=== PATIENT | male | born 1980 | race Caucasian/White ===

== ENCOUNTER 2024-02-09 20:46 | Emergency (ER) | payer BC, SELFPAY ==
[2024-02-09] VITALS (12 sets, daily range): BP systolic 152–164; BP diastolic 98–100; PULSE 70–83; RESP 20; TEMP 36.8; O2SAT 93–99; BMI 40.0
--- NOTE | 2024-02-09 20:53 | ED_ITS ---
HPI - General Adult General Time Seen by Provider: 20:53 Date Seen: 02/09/24 Chief complaint: Chest Pain Stated complaint: Chest pains Time Seen by Provider: 02/09/24 20:53 Source: patient Mode of arrival: ambulatory Limitations: no limitations History of Present Illness HPI narrative: Kobe is a very pleasant 43-year-old gentleman with history of hypertension, hyperlipidemia untreated who comes to the emergency room for evaluation regarding chest pain. Kobe notes that it had been a busy weekend and they had been camping with family down in [place]. Did not notice anything over the weekend. Tonight he was watching TV and had a 20 minute episode of chest discomfort substernal that he describes as a squeezing like a fist in his chest. He did have some lightheadedness when he got up but he is unsure if that may have been anxiety. He denies shortness of breath recent cough cold congestion nausea vomiting. He denies any unusual lower extremity edema or calf tenderness or history of DVT. Currently he states he has a discomfort of 1/10. It does not change if he moves position. He does have intact gallbladder and he has not had any GERD or history of heartburn. Deep breathing does not change his discomfort. Patient denies a history of tobacco use, alcohol use. No history of heartburn, GERD. Related Data Home Medications ?Medication ?Instructions ?Recorded ?Confirmed No Known Home Medications 02/09/24 02/09/24 Allergies Allergy/AdvReac Type Severity Reaction Status Date / Time No Known Drug Allergies Allergy Verified 02/09/24 20:53 Review of Systems Status of ROS: Reports: 10 or more systems reviewed and unremarkable except as noted in History and below Const: Denies: fever, chills or fatigue ENMT: Denies: throat pain, neck pain, throat swelling or nasal congestion Cardio: Reports: chest pain and lightheadedness; Denies: palpitations, edema, swelling of feet/ankles or shortness of breath with exertion Resp: Denies: shortness of breath, cough or wheezing GI: Denies: abdominal pain, nausea, vomiting or diarrhea : Denies: painful urination or urinary frequency Musculo: Denies: back pain, neck pain or extremity pain Neuro: Denies: headache, numbness in extremities or weakness in extremities Endo: Denies: fatigue Allergy/Immuno: Denies: throat swelling or wheezing PFSH PFSH Medical History No significant past medical history Surgical History No significant past surgical history Social History Smoking Status: Never smoker Second hand tobacco smoke exposure: No How often do you have a drink containing alcohol: never AUDIT-C Alcohol total score: 0 Non-prescribed substance use: denies use Exam Narrative: Exam Narrative: Arc is alert and oriented. Very pleasant well-spoken gentleman. No acute distress. Face symmetrical. Speech is normal as is mentation. Heart with regular rate and rhythm. I do not auscultate murmur or rub. I do have patient lean forward and again do not of appreciate a murmur or rub. Lungs are clear bilaterally. No CVA tenderness with percussion. Abdomen soft and nontender. Expect An in the right upper quadrant. Lower extremities without edema or calf tenderness. Const: Vital Signs, click to edit/add: Vital Signs - 24 hr 02/09/24 20:51 02/09/24 20:59 02/09/24 21:00 Temperature 98.2 F Pulse Rate 83 81 Pulse Rate [Right Pulse Oximeter] 83 Respiratory Rate 20 Blood Pressure 152/98 H Blood Pressure [Ri ght Upper Arm] 164/100 H Pulse Oximetry 99 97 94 Oxygen Delivery Me thod Room Air 02/09/24 21:15 02/09/24 21:30 02/09/24 21:45 Temperature Pulse Rate 79 76 75 Pulse Rate [Right Pulse Oximeter] Respiratory Rate Blood Pressure Blood Pressure [Ri ght Upper Arm] Pulse Oximetry 94 96 94 Oxygen Delivery Me thod 02/09/24 22:00 02/09/24 22:15 02/09/24 22:30 Temperature Pulse Rate 72 74 73 Pulse Rate [Right Pulse Oximeter] Respiratory Rate Blood Pressure Blood Pressure [Ri ght Upper Arm] Pulse Oximetry 93 93 94 Oxygen Delivery Me thod 02/09/24 22:45 02/09/24 23:00 02/09/24 23:15 Temperature Pulse Rate 70 71 75 Pulse Rate [Right Pulse Oximeter] Respiratory Rate Blood Pressure Blood Pressure [Ri ght Upper Arm] Pulse Oximetry 94 94 93 Oxygen Delivery Me thod Course Course ED Course: Differential diagnosis includes but is not limited to acute coronary syndrome, angina, esophageal spasm, biliary colic, esophagitis, GERD, anxiety, musculoskeletal discomfort. At this time will place IV and draw labs to include CBC, comprehensive panel, CRP, troponin. Will also order chest x-ray as well as EKG. Reevaluation(s) Reevaluation #1: Patient is noted to have had resolution of his discomfort. Two cardiac enzymes negative an EKG is reassuring. Vital Signs Vital signs: Initial Vital Signs Temperature 98.2 F 02/09/24 20:51 Temperature Source Temporal Artery Scan 02/09/24 20:51 Pulse Rate 83 02/09/24 20:51 Respiratory Rate 20 02/09/24 20:51 Blood Pressure 164/100 H 02/09/24 20:51 Blood Pressure Mean 121 H 02/09/24 20:51 Blood Pressure Position Sitting 02/09/24 20:51 Pulse Oximetry 99 02/09/24 20:51 Oxygen Delivery Method Room Air 02/09/24 20:51 Vital Signs Temperature 98.2 F 02/09/24 20:51 Pulse Rate 83 02/09/24 20:51 Respiratory Rate 20 02/09/24 20:51 Blood Pressure 164/100 H 02/09/24 20:51 Pulse Oximetry 99 02/09/24 20:51 Oxygen Delivery Method Room Air 02/09/24 20:51 Temperature 98.2 F 02/09/24 20:51 Pulse Rate 75 02/09/24 23:15 Respiratory Rate 20 02/09/24 20:51 Blood Pressure 152/98 H 02/09/24 20:59 Pulse Oximetry 93 02/09/24 23:15 Oxygen Delivery Method Room Air 02/09/24 20:51 Medical Decision Making [facility] Narrative Medical decision making narrative: 1. Atypical chest pain-patient has had reassuring EKG, 2 sets of negative cardiac enzymes and resolution of his discomfort. In addition compliance monitor did not show any evidence of arrhythmia. At this time given the elevated blood pressure and untreated hyperlipidemia, elevated BMI, he does have risk factors for cardiac disease. I would recommend follow-up with primary clinic/primary doctor for ordering of a stress test as well as attention to his elevated blood pressures. In the interim will be starting him on baby aspirin daily. First aspirin given this evening. Until stress test recommend limited activity and avoiding any activity that would elevate blood pressure. This would include sexual activity. Return to the emergency room for worsening symptoms. Kobe did think that perhaps he was having some heartburn because [facility] He can try Tums at home but if his pain would return and persist I would want him to return to the emergency room or call 911. 2. Disposition-home at this time. Patient is agree that they feel safe going home. Return for worsening symptoms. Lab Data Lab results reviewed: Yes I reviewed the patient's lab results Labs: Lab Results 02/09/24 02/09/24 02/09/24 Range/Units 21:30 21:35 23:35 WBC 8.84 (4.50-11.00) K/uL RBC 4.82 (4.30-5.90) m/uL Hgb 14.3 (13.5-17.5) gm/dL Hct 43.4 (37.0-53.0) % MCV 90 (80-100) fL MCH 30 (26-34) pg MCHC 33 (32-36) gm/dL RDW Coeff of Devi 12.4 (11.5-15.5) % Plt Count 296 (140-440) K/uL Neut % (Auto) 55.3 (42.0-72.0) % Lymph % (Auto) 34.2 (20-44) % [place] % (Auto) 7.5 (0.0-11.0) % Eos % (Auto) 2.4 (0.0-7.0) % Baso % (Auto) 0.5 (0.0-3.0) % Neut # (Auto) 4.90 (1.7-7.0) K/uL Lymph # (Auto) 3.02 H (0.90-2.90) K/uL [place] # (Auto) 0.70 (0.00-0.90) K/UL Eos # (Auto) 0.21 (0.00-0.50) K/uL Baso # (Auto) 0.04 (0.00-0.30) K/uL Abs Immat Gran (auto) 0.01 (0.00-0.30) K/uL Imm/Tot Granulo (auto) 0.1 % D-Dimer Quant (PE/DVT) 0.30 (0.00-0.50) ug/ml Sodium 137 (135-149) mmol/L Potassium 3.7 (3.6-5.1) mmol/L Chloride 103 (96-114) mmol/L Carbon Dioxide 27 (20-32) mmol/L Anion Gap 7 (7-15) mEq/L BUN 11 (5-24) mg/dL Creatinine 0.9 (0.5-1.5) mg/dL Estimated Creat Clear 127.79 Estimated GFR 109 ml/min Glucose 102 (60-115) mg/dL Calcium 8.4 (8.4-10.6) mg/dL Magnesium 2.3 (1.5-2.6) mg/dL Total Bilirubin 0.2 (0.1-1.5) mg/dL AST 22 (12-35) U/L ALT 16 (4-50) U/L Alkaline Phosphatase 59 (40-150) U/L C-Reactive Protein < 0.5 L (0.5-1.0) mg/dL Total Protein 7.1 (6.0-8.3) g/dL Albumin 4.1 (3.3-5.0) g/dL POC Troponin I 0.00 L 0.00 L (0.01-0.04) ng/ml Imaging Data Chest x-ray: Attestation: I have reviewed the pertinent imaging results. My impression: No acute finding Radiologist's impression: FINDINGS: The sensitivity and specificity of the exam are severely limited by the patient`s body habitus. Mediastinum: Enlargement of the central pulmonary arteries are noted and near the upper limits of normal in size. The heart silhouette is normal in size and morphology. Lung: Both lungs are unremarkable in appearance. No sign of pleural effusion seen. No pneumothorax is identified. Bone and Soft tissue: Unremarkable for age. IMPRESSION: 1. No acute cardiopulmonary disease is seen. ECG Data Attestation: I personally reviewed and interpreted this ECG as follows: Interpretation: EKG by my read shows sinus rhythm at a rate of 73. No acute ST or T-wave changes noted. QT and ID intervals within normal limits. Discharge Plan Discharge Clinical Impression: Atypical chest pain Patient Disposition: Home, Self-Care Condition: Improved Additional Instructions: At this time suggest follow-up with your primary MD for scheduling of stress test. I do also think that your blood pressure need some attention. In the meantime would like to start you on baby aspirin daily. No high energy or activity that would increase her heart rate until after your stress test. This would include sexual activity. Return to the emergency room for worsening symptoms. Prescriptions: No Action No Known Home Medications Follow Up/Referrals: Luis Fernando Yeh MD [Referring] - Stand Alone Forms: [employer] Info Instructions
--- NOTE | 2024-02-09 21:41 | CRLHL7_ITS ---
For Patients: As a result of the Cures Act, medical imaging exams and procedure reports are released immediately into your electronic medical record. You may view this report before your referring provider. If you have questions, please contact your health care provider. INDICATION: Chest pain TECHNIQUE: Chest radiograph 1 view COMPARISON: None FINDINGS: The sensitivity and specificity of the exam are severely limited by the patient`s body habitus. Mediastinum: Enlargement of the central pulmonary arteries are noted and near the upper limits of normal in size. The heart silhouette is normal in size and morphology. Lung: Both lungs are unremarkable in appearance. No sign of pleural effusion seen. No pneumothorax is identified. Bone and Soft tissue: Unremarkable for age. IMPRESSION: 1. No acute cardiopulmonary disease is seen. Dictated by Edgar Bojorquez MD @ 02/09/2024 10:23:55 PM Dictated by: Edgar Bojorquez MD @ 02/09/2024 22:23:59 (Electronically Signed)
[2024-02-09 21:53] LABS: Basophils Absolute Auto 0.04 K/uL (0.00-0.30); Basophils Percent Auto 0.5 % (0.0-3.0); Eosinophils Absolute Auto 0.21 K/uL (0.00-0.50); Eosinophils Percent Auto 2.4 % (0.0-7.0); Hematocrit 43.4 % (37.0-53.0); Hemoglobin* 14.3 gm/dL (13.5-17.5); Immature Granulocytes Abs Auto 0.01 K/uL (0.00-0.30); Immature Granulocytes Pct Auto 0.1 %; Lymphocytes Absolute Auto 3.02 K/uL (0.90-2.90); Lymphocytes Percent Auto 34.2 % (20-44); Mean Corpuscular HGB Conc 33 gm/dL (32-36); Mean Corpuscular Hemoglobin 30 pg (26-34); Mean Corpuscular Volume 90 fL (80-100); Monocytes Percent Auto 7.5 % (0.0-11.0); Neutrophils Percent Auto 55.3 % (42.0-72.0); Platelet Count* 296 K/uL (140-440); RDW Coefficient of Variation % 12.4 % (11.5-15.5); Red Blood Count 4.82 m/uL (4.30-5.90); White Blood Count* 8.84 K/uL (4.50-11.00)
[2024-02-09 21:55] LABS: Albumin* 4.1 g/dL (3.3-5.0); Chloride* 103 mmol/L (96-114); Potassium* 3.7 mmol/L (3.6-5.1); Sodium* 137 mmol/L (135-149)
[2024-02-09 21:57] LABS: Slide Review Reflex No
[2024-02-09 21:58] LABS: Alanine Aminotransferase* 16 U/L (4-50); Alkaline Phosphatase* 59 U/L (40-150); Anion Gap 7 mEq/L (7-15); Aspartate Amino Transferase* 22 U/L (12-35); Bilirubin Total* 0.2 mg/dL (0.1-1.5); Blood Urea Nitrogen* 11 mg/dL (5-24); Carbon Dioxide* 27 mmol/L (20-32); Creatinine* 0.9 mg/dL (0.5-1.5); Est. Creatinine Clearance* 127.79; Estimated Glomerular Filt Rate 109 ml/min; Glucose* 102 mg/dL (60-115); Total Protein* 7.1 g/dL (6.0-8.3)
[2024-02-09 21:59] LABS: Calcium* 8.4 mg/dL (8.4-10.6)
[2024-02-09 22:00] LABS: Magnesium* 2.3 mg/dL (1.5-2.6)
[2024-02-09 22:02] LABS: C Reactive Protein* < 0.5 mg/dL (0.5-1.0)
[2024-02-10 00:08] VITALS: BP 145/84; PULSE 81; RESP 20; TEMP 36.8; O2SAT 93
[2024-02-10] MEDS: ASPIRIN 81 MG TAB.CHEW PO (00:08)
[2024-02-10 00:10] VITALS: BP 145/84; PULSE 81; RESP 20; TEMP 36.8
== END 2024-02-10 00:11 | disposition home or self-care (01) ==
PROVIDERS: Emergency Provider Family Medicine; PCP Family Medicine
DX: R07.89 Other chest pain (principal)
CPT/HCPCS: 36415; 71045; 80053; 83735; 84484; 85025; 85379; 86140; 93005; 94761; 99284; 99285; A9270